=== PATIENT | male | born 1995 | race Hispanic/Latino ===

== ENCOUNTER 2019-04-09 20:39 | Emergency (ER) | payer BC ==
[~2019-04-09] VITALS: Ht 182.9 cm; Wt 117.9 kg
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
[2019-04-09] MEDS ORDERED: TRAMADOL HCL 50 MG TAB PO ONE (22:00)
== END 2019-04-09 23:13 | disposition home or self-care (01) ==
LOC: ER 20:39
DX: S60.221A Contusion of right hand, initial encounter (principal); S60.211A Contusion of right wrist, initial encounter; S50.11XA Contusion of right forearm, initial encounter; V43.52XA Car driver injured in collision with other type car in traffic accident, initial encounter; Y92.488 Other paved roadways as the place of occurrence of the external cause
CPT/HCPCS: 99283